=== PATIENT | male | born 1975 | race Caucasian/White ===

== ENCOUNTER 2020-05-16 04:57 | Emergency (ER) | payer OTHER ==
[2020-05-16] MEDS ORDERED: Ketorolac 15 MG/ML SDV ONE (05:23)
[2020-05-16] MEDS ORDERED: Ondansetron 4 MG/2 ML SDV ONE (05:24)
[2020-05-16] MEDS ORDERED: Morphine 4 MG/ML Syringe ONE (05:24)
[2020-05-16 07:13] LABS: BLOOD UREA NITROGEN,BUN 11 mg/dL (7.0-18.0); CARBON DIOXIDE,CO2 26.1 mmol/L (21.0-32.0); CHLORIDE,CL 102 mmol/L (98-107); GLUCOSE RANDOM 110 mg/dL (74-106); LIPASE 113 U/L (73-393); SODIUM,NA 138 mmol/L (136-148)
--- NOTE | 2020-05-16 07:15 | EDM.PDOC ---
ED HPI GENERAL MEDICAL PROBLEM - General Stated Complaint: ABDOMINAL PAIN; BLOOD IN STOOL Time Seen by Provider: 05/16/20 05:00 - History of Present Illness INITIAL COMMENTS - FREE TEXT/NARRATIVE: The patient history and physical examination are documented Dr. Cristobal in the T- sheet because he arrived during computer downtime - Related Data Allergies Allergy/AdvReac Type Severity Reaction Status Date / Time No Known Allergies Allergy Verified 01/26/14 20:37 Home Meds: Home Meds Antibiotic For Cold 1 tab PO TID 05/24/14 [History] Ibuprofen 1 tab PO ASDIRECTED PRN 05/24/14 [History] Levothyroxine [Synthroid] 1 tab PO DAILY 05/24/14 [History] Amoxicillin/Potassium Clav [Augmentin 875-125 Tablet] 1 each PO Q12H 5 Days #20 tablet 05/16/20 [Rx] ED ROS GENERAL - Review of Systems Review Of Systems: Comprehensive ROS is negative, except as noted in HPI. ED EXAM, GENERAL - Physical Exam Exam: See Below Free Text/Narrative:: History and physical exam are documented in the T sheet by Dr. Das Course - Vital Signs Text/Narrative:: I assumed care from Dr. Cristobal at the end of his shift. The documentation is on a T-sheet. The patient has a presumptive diagnosis of nonspecific abdominal pain versus diverticulitis. He wants to go back to work as soon as his CT is completed. CT revealed a probable infectious colitis. Patient felt well in the ER and has to go back to work. Antibiotic given and prescription sent. Patient discharged in satisfactory condition Last Recorded V/S: Last Vital Signs Temp 96.9 F 05/16/20 08:00 Pulse 73 05/16/20 08:00 Resp 17 05/16/20 08:00 BP 120/76 05/16/20 08:00 Pulse Ox 98 05/16/20 08:00 - Orders/Labs/Meds Orders: Active Orders 24 hr Category Date Time Status Abdomen Pelvis wo Cont [CT] Stat Exams 05/16/20 08:13 Ordered Labs: Laboratory Tests 05/16/20 05/16/20 05/16/20 Range/Units 05:22 05:22 05:22 WBC 8.99 (4.0-11.0) K/uL RBC 5.52 (4.50-5.90) M/uL Hgb 17.5 H (13.0-17.0) g/dL Hct 52.3 H (38.0-50.0) % MCV 94.7 (80.0-98.0) fL MCH 31.7 (27.0-32.0) pg MCHC 33.5 (31.0-37.0) g/dL RDW Std Deviation 47.8 (28.0-62.0) fl RDW Coeff of Thai 14 (11.0-15.0) % Plt Count 203 (150-400) K/uL MPV 10.60 (7.40-12.00) fL Nucleated RBC % 0.0 /100WBC Nucleated RBCs # 0 K/uL Lactate 1.3 (0.20-2.00) mmol/L Sodium 138 (136-148) mmol/L Potassium 4.0 (3.5-5.1) mmol/L Chloride 102 (98-107) mmol/L Carbon Dioxide 26.1 (21.0-32.0) mmol/L BUN 11 (7.0-18.0) mg/dL Creatinine 1.5 H (0.8-1.3) mg/dL Est Cr Clr Drug Dosing TNP Estimated GFR (MDRD) 50.8 ml/min Glucose 110 H (74-106) mg/dL Calcium 8.9 (8.5-10.1) mg/dL Total Bilirubin 0.6 (0.2-1.0) mg/dL AST 23 (15-37) IU/L ALT 30 (14-63) IU/L Alkaline Phosphatase 87 (46-116) U/L Total Protein 7.3 (6.4-8.2) g/dL Albumin 4.0 (3.4-5.0) g/dL Globulin 3.3 (2.6-4.0) g/dL Albumin/Globulin Ratio 1.2 (0.9-1.6) Lipase 113 (73-393) U/L Urine Color Urine Appearance Urine pH (5.0-8.0) Ur Specific [place] (1.001-1.035) Urine Protein (NEGATIVE) mg/dL Urine Glucose (UA) (NEGATIVE) mg/dL Urine Ketones (NEGATIVE) mg/dL Urine Occult Blood (NEGATIVE) Urine Nitrite (NEGATIVE) Urine Bilirubin (NEGATIVE) Urine Urobilinogen (<2.0) EU/dL Ur Leukocyte Esterase (NEGATIVE) Urine RBC (0-2/HPF) Urine WBC (0-5/HPF) Ur Epithelial Cells (NONE-FEW) Urine Bacteria (NEGATIVE) 05/16/20 Range/Units 05:22 WBC (4.0-11.0) K/uL RBC (4.50-5.90) M/uL Hgb (13.0-17.0) g/dL Hct (38.0-50.0) % MCV (80.0-98.0) fL MCH (27.0-32.0) pg MCHC (31.0-37.0) g/dL RDW Std Deviation (28.0-62.0) fl RDW Coeff of Thai (11.0-15.0) % Plt Count (150-400) K/uL MPV (7.40-12.00) fL Nucleated RBC % /100WBC Nucleated RBCs # K/uL Lactate (0.20-2.00) mmol/L Sodium (136-148) mmol/L Potassium (3.5-5.1) mmol/L Chloride (98-107) mmol/L Carbon Dioxide (21.0-32.0) mmol/L BUN (7.0-18.0) mg/dL Creatinine (0.8-1.3) mg/dL Est Cr Clr Drug Dosing Estimated GFR (MDRD) ml/min Glucose (74-106) mg/dL Calcium (8.5-10.1) mg/dL Total Bilirubin (0.2-1.0) mg/dL AST (15-37) IU/L ALT (14-63) IU/L Alkaline Phosphatase (46-116) U/L Total Protein (6.4-8.2) g/dL Albumin (3.4-5.0) g/dL Globulin (2.6-4.0) g/dL Albumin/Globulin Ratio (0.9-1.6) Lipase (73-393) U/L Urine Color YELLOW Urine Appearance CLEAR Urine pH 6.0 (5.0-8.0) Ur Specific [place] 1.020 (1.001-1.035) Urine Protein NEGATIVE (NEGATIVE) mg/dL Urine Glucose (UA) NEGATIVE (NEGATIVE) mg/dL Urine Ketones NEGATIVE (NEGATIVE) mg/dL Urine Occult Blood NEGATIVE (NEGATIVE) Urine Nitrite NEGATIVE (NEGATIVE) Urine Bilirubin NEGATIVE (NEGATIVE) Urine Urobilinogen 0.2 (<2.0) EU/dL Ur Leukocyte Esterase NEGATIVE (NEGATIVE) Urine RBC 0-1 (0-2/HPF) Urine WBC 0-1 (0-5/HPF) Ur Epithelial Cells RARE (NONE-FEW) Urine Bacteria RARE (NEGATIVE) Meds: Medications Discontinued Medications Generic Name Dose Route Start Last Admin Trade Name Freq PRN Reason Stop Dose Admin Amoxicillin/Clavulanate Potassium 1 tab 05/16/20 07:47 05/16/20 08:03 Augmentin 875 Mg/125 Mg PO 05/16/20 07:48 1 tab ONETIME ONE Administration Ketorolac Tromethamine Confirm 05/16/20 05:23 Toradol Administered 05/16/20 05:24 Dose 15 mg .ROUTE .STK-MED ONE Morphine Sulfate Confirm 05/16/20 05:24 Morphine Administered 05/16/20 05:25 Dose 4 mg .ROUTE .STK-MED ONE Ondansetron HCl Confirm 05/16/20 05:24 Zofran Administered 05/16/20 05:25 Dose 4 mg .ROUTE .STK-MED ONE Departure - Departure Time of Disposition: 08:20 Disposition: Home, Self-Care 01 Condition: Good Clinical Impression: Colitis - Discharge Information Prescriptions: Amoxicillin/Potassium Clav [Augmentin 875-125 Tablet] 1 each PO Q12H 5 Days #20 tablet Instructions: Colitis Additional Instructions: [facility] [address] [place] [address] [place] [address] The following information is given to patients seen in the emergency department who are being discharged to home. This information is to outline your options for follow-up care. We provide all patients seen in our emergency department with a follow-up referral. The need for follow-up, as well as the timing and circumstances, are variable depending upon the specifics of your emergency department visit. If you don't have a primary care physician on staff, we will provide you with a referral. We always advise you to contact your personal physician following an emergency department visit to inform them of the circumstance of the visit and for follow-up with them and/or the need for any referrals to a consulting specialist. The emergency department will also refer you to a specialist when appropriate. This referral assures that you have the opportunity for follow-up care with a specialist. All of these measure are taken in an effort to provide you with optimal care, which includes your follow-up. Under all circumstances we always encourage you to contact your private physician who remains a resource for coordinating your care. When calling for follow-up care, please make the office aware that this follow-up is from your recent emergency room visit. If for any reason you are refused follow-up, please contact the [facility] Department at and asked to speak to the emergency department charge nurse. Sepsis Event Note (ED) - Focused Exam Vital Signs: Vital Signs Temp Pulse Resp BP Pulse Ox 05/16/20 08:00 96.9 F 73 17 120/76 98 - My Orders Last 24 Hours: My Active Orders 05/16/20 08:13 Abdomen Pelvis wo Cont [CT] Stat - Assessment/Plan Last 24 Hours: My Active Orders 05/16/20 08:13 Abdomen Pelvis wo Cont [CT] Stat
[2020-05-16] MEDS ORDERED: Amoxicillin/Clavulanate K 875-125 MG Tab PO ONE (07:47)
--- NOTE | 2020-05-20 10:15 | CT ---
EXAM DATE: 05/16/20 PATIENT'S AGE: 44 Patient: GEMINI ARZATE Facility: [facility] Site : 1975 Study: CT-Abdomen/Pelvis-05/16/2020 6:42:03 AM Ordering Physician: DELICIA WRIGHT Final Report: INDICATION: Left lower quadrant abdomen pain. TECHNIQUE: CT abdomen and pelvis without contrast. COMPARISON: None. FINDINGS: Lower chest: Unremarkable. Liver: Normal in size and attenuation. No masses. Gallbladder and bile ducts: Few small gallbladder stones. Otherwise unremarkable. Pancreas: Unremarkable. No mass or inflammation. Spleen: Normal in size. No masses. Adrenal glands: Normal in size. No nodules. Kidneys: Normal in size. No masses, stones, or hydronephrosis. GI tract: Wall edema/inflammation is present in the descending colon consistent with colitis. Remainder of the GI tract is normal in caliber and appearance. Normal appendix. Vasculature: Abdominal aorta normal in caliber. Lymph nodes: No lymphadenopathy. Abdominal wall/Omentum/Peritoneum: Unremarkable. No sign of mass or infiltration. No free air or significant free fluid. Pelvis: Unremarkable. No pelvic masses. Bones: Unremarkable for age. IMPRESSION: Acute colitis in the descending colon which is likely infectious in nature. Remainder of the exam is unremarkable. Please note that all CT scans at this facility use dose modulation, iterative reconstruction, and/or weight-based dosing when appropriate to reduce radiation dose to as low as reasonably achievable. Dictated by Isaac Paredes MD @ May 16 2020 7:36AM Signed by: Isaac Paredes MD @05/16/2020 7:42:05 AM (Electronic Signature) Report Signed by Proxy. [facility]
== END 2020-05-16 08:31 | disposition home or self-care (01) ==
LOC: MW.ED 04:57
DX: K52.9 Noninfective gastroenteritis and colitis, unspecified (principal); Z79.899 Other long term (current) drug therapy
CPT/HCPCS: 36415; 74176; 80053; 81001; 83605; 83690; 85027; 96361; 96374; 96375; 99284; A9270; 99283

== ENCOUNTER 2021-12-08 16:31 | Emergency (ER) | payer MEDICAID, OTHER | END 2021-12-08 21:09 | disposition home or self-care (01) | LOC: MW.ED 16:31 | DX: S80.01XA Contusion of right knee, initial encounter (principal); M25.461 Effusion, right knee; E03.9 Hypothyroidism, unspecified; F17.210 Nicotine dependence, cigarettes, uncomplicated; Z79.899 Other long term (current) drug therapy; X58.XXXA Exposure to other specified factors, initial encounter | CPT/HCPCS: 73562-26-RT; 73562-RT; 99282; 99283-25 ==

== ENCOUNTER 2022-07-10 04:25 | Emergency (ER) | payer MEDICAID ==
[2022-07-10] MEDS ORDERED: Orphenadrine 60 MG/2 ML Inj IM ONE (04:48)
[2022-07-10] MEDS ORDERED: Ketorolac 30 MG/ML SDV IM ONE (04:48)
[2022-07-10] MEDS ORDERED: Cyclobenzaprine 10 MG Tab PO ONE (04:53)
[2022-07-10] MEDS ORDERED: Ibuprofen 600 MG Tab PO ONE (04:53)
== END 2022-07-10 05:27 | disposition home or self-care (01) ==
LOC: MW.ED 04:25
DX: M54.41 Lumbago with sciatica, right side (principal); E03.9 Hypothyroidism, unspecified; Z79.899 Other long term (current) drug therapy; Z98.890 Other specified postprocedural states
CPT/HCPCS: 96372; 99283; A9270; J1885; J2360

== ENCOUNTER 2022-07-13 08:27 | Emergency (ER) | payer MEDICAID | END 2022-07-13 10:50 | disposition home or self-care (01) | LOC: MW.ED 08:27 | DX: M54.31 Sciatica, right side (principal); F17.210 Nicotine dependence, cigarettes, uncomplicated; Z79.899 Other long term (current) drug therapy | CPT/HCPCS: 93971-26-RT; 93971-RT; 99283 ==

== ENCOUNTER 2023-06-16 14:44 | Emergency (ER) | payer MEDICAID ==
[2023-06-16] MEDS ORDERED: Sodium Chloride 0.9% 1,000 ML IV ONE (15:27)
[2023-06-16] MEDS ORDERED: Metoclopramide 10 MG/2 ML SDV IVPUSH ONE (15:27)
[2023-06-16] MEDS ORDERED: Ketorolac 30 MG/ML SDV IVPUSH ONE (15:27)
[2023-06-16] MEDS ORDERED: Meclizine 25 MG Tab PO ONE (15:27)
[2023-06-16 15:41] LABS: BASOPHILS ABSOLUTE AUTO 0.06 K/uL (0.00-0.20); BASOPHILS PERCENT AUTO 1.3 % (0.0-1.0); EOSINOPHILS PERCENT AUTO 6.4 % (0.0-6.0); HEMATOCRIT 48.6 % (42.0-52.0); HEMOGLOBIN 16.3 g/dL (14.0-18.0); IMMATURE GRAN ABSOLUTE AUTO 0.01 K/uL (0.00-0.05); IMMATURE GRAN PERCENT AUTO 0.2 % (0.0-0.4); LYMPHOCYTES ABSOLUTE AUTO 1.74 K/uL (1.00-4.80); LYMPHOCYTES PERCENT AUTO 36.9 % (24.0-44.0); MEAN CORPUSCULAR HEMOGLOBIN 30.7 pg (28.0-32.0); MEAN CORPUSCULAR HGB CONC 33.5 g/dL (32.0-36.0); MEAN CORPUSCULAR VOLUME 91.5 fL (83.0-99.0); MEAN PLATELET VOLUME 9.8 fL (9.4-12.4); MONOCYTES ABSOLUTE AUTO 0.49 K/uL (0.00-0.80); MONOCYTES PERCENT AUTO 10.4 % (0.0-8.0); NEUTROPHILS ABSOLUTE AUTO 2.1 K/uL (1.8-7.7); NEUTROPHILS PERCENT AUTO 44.8 % (41.0-71.0); PLATELET COUNT,PLT 202 K/uL (150-400); RED BLOOD CELL COUNT 5.31 M/uL (4.52-5.90); WHITE BLOOD CELL COUNT,WBC 4.72 K/uL (3.9-11.3)
[2023-06-16 16:20] LABS: A/G RATIO 1.1 (0.9-1.6); ALBUMIN 3.5 g/dL (3.4-5.0); BILIRUBIN TOTAL 0.4 mg/dL (0.2-1.0); CARBON DIOXIDE,CO2 24.5 mmol/L (21.0-32.0); CREATININE 1.3 mg/dL (0.8-1.3); EST CRCL DRUG DOSING (CG) 74.01 mL/min; POTASSIUM,K 4.1 mmol/L (3.5-5.1); PROTEIN TOTAL,TP 6.6 g/dL (6.4-8.2); TSH ULTRASENSITIVE 1.2 uIU/mL (0.36-3.74)
== END 2023-06-16 18:26 | disposition home or self-care (01) ==
LOC: MW.ED 14:44
DX: R42 Dizziness and giddiness (principal); E03.9 Hypothyroidism, unspecified; F17.210 Nicotine dependence, cigarettes, uncomplicated; Z79.899 Other long term (current) drug therapy
CPT/HCPCS: 36415; 70450; 80053; 83735; 84443; 84484; 85025; 93005; 96361; 96374; 96375; 99284; A9270; J1885; J2765; J7030; 93010

== ENCOUNTER 2023-11-23 09:06 | Emergency (ER) | payer BC ==
[2023-11-23] MEDS: Morphine 4 MG/ML Syringe IVPUSH ONE (09:37)
[2023-11-23] MEDS: Ketorolac 30 MG/ML SDV IVPUSH ONE (09:37)
[2023-11-23] MEDS: Ondansetron 4 MG/2 ML SDV IVPUSH ONE (09:37)
[2023-11-23 10:29] LABS: BASOPHILS ABSOLUTE AUTO 0.07 K/uL (0.00-0.20); EOSINOPHILS PERCENT AUTO 2.8 % (0.0-6.0); HEMATOCRIT 48.3 % (42.0-52.0); HEMOGLOBIN 16.3 g/dL (14.0-18.0); IMMATURE GRAN ABSOLUTE AUTO 0.01 K/uL (0.00-0.05); IMMATURE GRAN PERCENT AUTO 0.1 % (0.0-0.4); LYMPHOCYTES ABSOLUTE AUTO 1.97 K/uL (1.00-4.80); LYMPHOCYTES PERCENT AUTO 27.6 % (24.0-44.0); MEAN CORPUSCULAR HEMOGLOBIN 30.9 pg (28.0-32.0); MEAN CORPUSCULAR HGB CONC 33.7 g/dL (32.0-36.0); MEAN CORPUSCULAR VOLUME 91.7 fL (83.0-99.0); MEAN PLATELET VOLUME 9.8 fL (9.4-12.4); MONOCYTES ABSOLUTE AUTO 0.69 K/uL (0.00-0.80); MONOCYTES PERCENT AUTO 9.7 % (0.0-8.0); NEUTROPHILS ABSOLUTE AUTO 4.21 K/uL (1.80-7.70); NEUTROPHILS PERCENT AUTO 58.8 % (41.0-71.0); PLATELET COUNT,PLT 216 K/uL (150-400); RED BLOOD CELL COUNT 5.27 M/uL (4.52-5.90); WHITE BLOOD CELL COUNT,WBC 7.15 K/uL (3.9-11.3)
[2023-11-23 11:00] LABS: INR 1.01 (0.86-1.11); PTT,PARTIAL THROMBOPLSTIN TIME 26.1 SEC (23.9-30.7)
[2023-11-23 11:05] LABS: A/G RATIO 1.1 (0.9-1.6); ALBUMIN 3.4 g/dL (3.4-5.0); BILIRUBIN TOTAL 0.3 mg/dL (0.2-1.0); C-REACTIVE PROTEIN 1.09 mg/dL (<0.3); CALCIUM 9.1 mg/dL (8.5-10.1); CARBON DIOXIDE,CO2 24.4 mmol/L (21.0-32.0); CREATININE 1.2 mg/dL (0.8-1.3); EST CRCL DRUG DOSING (CG) 80.18 mL/min; POTASSIUM,K 4.5 mmol/L (3.5-5.1); PROTEIN TOTAL,TP 6.6 g/dL (6.4-8.2); URIC ACID 7.7 mg/dL (2.6-7.2)
== END 2023-11-23 11:43 | disposition home or self-care (01) ==
LOC: MW.ED 09:06
DX: M79.89 Other specified soft tissue disorders (principal); E03.9 Hypothyroidism, unspecified; Z79.899 Other long term (current) drug therapy; Z75.8 Other problems related to medical facilities and other health care
CPT/HCPCS: 36415; 73610; 73630; 80053; 84550; 85025; 85610; 85730; 86140; 93971; 96374; 96375; 99284; J1885; J2270; J2405; 99283

== ENCOUNTER 2024-05-06 11:40 | Emergency (ER) | payer SELFPAY ==
[2024-05-06] MEDS: Acetaminophen 500 MG Tab PO STA (13:16)
[2024-05-06] MEDS: Ibuprofen 800 MG Tab PO STA (13:16)
[2024-05-06] MEDS: traMADol 50 MG Tab PO STA (13:16)
== END 2024-05-06 16:40 | disposition home or self-care (01) ==
LOC: MW.ED 11:40
DX: S69.92XA Unspecified injury of left wrist, hand and finger(s), initial encounter (principal); E03.9 Hypothyroidism, unspecified; F17.210 Nicotine dependence, cigarettes, uncomplicated; Z79.890 Hormone replacement therapy; Z75.8 Other problems related to medical facilities and other health care; W01.0XXA Fall on same level from slipping, tripping and stumbling without subsequent striking against object, initial encounter
CPT/HCPCS: 29125; 73110; 73130; 99283; A9270

== ENCOUNTER 2024-09-26 04:59 | Emergency (ER) | payer BC ==
[2024-09-26 05:30] LABS: BASOPHILS PERCENT AUTO 1.1 % (0.0-1.0); EOSINOPHILS ABSOLUTE AUTO 0.29 K/uL (0.00-0.45); EOSINOPHILS PERCENT AUTO 3.3 % (0.0-6.0); HEMOGLOBIN 16.2 g/dL (14.0-18.0); IMMATURE GRAN ABSOLUTE AUTO 0.01 K/uL (0.00-0.05); IMMATURE GRAN PERCENT AUTO 0.1 % (0.0-0.4); LYMPHOCYTES ABSOLUTE AUTO 3.28 K/uL (1.00-4.80); LYMPHOCYTES PERCENT AUTO 36.9 % (24.0-44.0); MEAN CORPUSCULAR HEMOGLOBIN 31.2 pg (28.0-32.0); MEAN CORPUSCULAR HGB CONC 33.8 g/dL (32.0-36.0); MEAN CORPUSCULAR VOLUME 92.5 fL (83.0-99.0); MEAN PLATELET VOLUME 9.8 fL (9.4-12.4); MONOCYTES ABSOLUTE AUTO 0.54 K/uL (0.00-0.80); MONOCYTES PERCENT AUTO 6.1 % (0.0-8.0); NEUTROPHILS ABSOLUTE AUTO 4.68 K/uL (1.80-7.70); NEUTROPHILS PERCENT AUTO 52.5 % (41.0-71.0); PLATELET COUNT,PLT 213 K/uL (150-400); RED BLOOD CELL COUNT 5.19 M/uL (4.52-5.90)
[2024-09-26 05:53] LABS: CALCIUM 8.7 mg/dL (8.5-10.1); CARBON DIOXIDE,CO2 27.1 mmol/L (21.0-32.0); CREATININE 1.8 mg/dL (0.8-1.3); EST CRCL DRUG DOSING (CG) 52.87 mL/min; POTASSIUM,K 3.3 mmol/L (3.5-5.1)
[2024-09-26] MEDS: Potassium Chloride 20 MEQ Tab.ER PO ONE (06:10)
[2024-09-26] MEDS: Pseudoephedrine 30 MG Tab PO ONE (06:25)
== END 2024-09-26 06:28 | disposition home or self-care (01) ==
LOC: MW.ED 04:59
DX: R06.02 Shortness of breath (principal); R09.81 Nasal congestion; E03.9 Hypothyroidism, unspecified; F17.210 Nicotine dependence, cigarettes, uncomplicated; Z79.890 Hormone replacement therapy; Z79.899 Other long term (current) drug therapy
CPT/HCPCS: 36415; 71046; 80048; 84484; 85025; 87428; 93005; 99285; A9270

== ENCOUNTER 2024-10-14 16:05 | Emergency (ER) | payer BC | END 2024-10-14 18:10 | disposition home or self-care (01) | LOC: MW.ED 16:05 | DX: S90.31XA Contusion of right foot, initial encounter (principal); E03.9 Hypothyroidism, unspecified; F17.210 Nicotine dependence, cigarettes, uncomplicated; Z79.899 Other long term (current) drug therapy; Z75.8 Other problems related to medical facilities and other health care; W20.8XXA Other cause of strike by thrown, projected or falling object, initial encounter | CPT/HCPCS: 73630-26-RT; 73630-RT; 99283 ==